=== PATIENT | male | born 2000 | race Hispanic/Latino ===

== ENCOUNTER 2020-11-17 08:43 | Emergency (ER) | payer SELFPAY ==
[2020-11-17 08:44] VITALS: BP 134/98; PULSE 94; RESP 16; TEMP 36.4; O2SAT 96; BMI 32.5
--- NOTE | 2020-11-17 10:02 | EDS_ITS ---
HPI History of Present Illness Chief Complaint: General Illness Informant: patient Onset/Context/Timing Onset: Yesterday Context: Gradual Onset Timing: Continuous Quality: Nausea Location: Abdomen Worsened by: Nothing Relieved by: Nothing Narrative Narrative: Patient presents with nausea, subjective fevers, and a slight cough that began yesterday. Patient states his girlfriend tested positive for COVID- 19 recently. Patient states that his boss required him to come to the emergency department to get tested for COVID-19. Patient states he felt warm at home but did not take his temperature. Patient admits to some nausea and vomiting. Patient admits to cough but denies any sputum production. Patient also admits to some mild upper back pain. PFSH PFSH Medical History no medical history no medical history Allergy/AdvReac Type Severity Reaction Status Date / Time bee venom protein (honey bee) Allergy Swelling Verified 11/17/20 08:56 Surgical History no surgical history no surgical history ROS ROS ED Constitutional Constitutional ED: Reports chills, fever(s) and subjective Eyes Eyes: Denies blurry vision or change in vision ENT ENT ED: Denies rhinorrhea or sore throat Cardiovascular Cardiovascular: Denies chest pain or palpitations Respiratory/Chest Respiratory/Chest: Reports cough; Denies dyspnea Gastrointestinal Gastrointestinal: Reports nausea and vomiting Genitourinary Genitourinary ED: Denies dysuria or hematuria Musculoskeletal Musculoskeletal: Reports back pain; Denies neck pain Integumentary Denies abscess or rash Neurologic Neurologic: Denies headache(s) or weakness Allergic/Immunologic Allergic/Immunologic ED: Denies mouth swelling or urticaria EXAM Physical Exam Const Vital Signs: 11/17/20 08:44 Temperature 97.6 F L Temperature Source Temporal Pulse Rate 94 Respiratory Rate 16 Blood Pressure 134/98 H Blood Pressure Mean 110 Pulse Ox 96 Oxygen Delivery Method Room Air Positive well nourished and well developed General Appearance ED: well developed HEENT Reports moist mucous membranes Neck supple and no JVD Resp normal respiratory effort and clear to auscultation bilaterally Cardio regular rate, regular rhythm and no murmurs GI normal to inspection, nondistended, normoactive bowel sounds and non-tender Palpation: soft Extremity normal to inspection General Extremety ED: Negative for edema or tenderness General Extremity: Negative for edema Neuro oriented x3, CN's II-XII intact bilaterally and no sensory deficits noted Sensorium / Orientation: alert Motor Exam: strength 5/5 throughout Psych mental status grossly normal Skin no rashes or lesions noted MDM MDM MDM Narrative Medical decision making narrative: COVID-19 rapid antigen was ordered. Patient does not want to have this done here. Patient states he did not even want to see a physician. Patient was advised to follow-up with his primary care physician in 5 to 7 days. Patient was instructed return if worse in any way. Patient understood and was agreeable with the plan. All questions were answered. Discharge Plan Triage Chief Complaint: General Illness ED Provider: Steve Valles Dx/Rx/DC Orders Clinical Impression: Close exposure to COVID-19 virus Instructions: Coronavirus Disease 2019 (COVID-19): Overview Primary Care Provider: Care Physician,No Primary Referrals: Tayler Briones [NON-STAFF] - 10-14 Days if not better Care Physician,No Primary [Primary Care Provider] - Disposition Disposition: Home, Self Care
--- NOTE | 2020-11-17 10:09 | ED.RN ---
PT REFUSING COVID TEST PT STATES I DON'T WANT TO SEE A DOCTOR OR GET A BILL I JUST WANT A COVID TEST. PT THEN REFUSED THE COVID TEST. MADE AWARE.
[2020-11-17 10:22] VITALS: RESP 16
== END 2020-11-17 10:22 | disposition home or self-care (01) ==
PROVIDERS: Emergency Provider Emergency Medicine
DX: R11.2 Nausea with vomiting, unspecified (principal); Z20.822 Contact with and (suspected) exposure to COVID-19; R05.9 Cough, unspecified; M54.6 Pain in thoracic spine
CPT/HCPCS: 99282